=== PATIENT | male | born 1970 | race Two or more races ===

== ENCOUNTER 2018-03-01 22:14 | Emergency (ER) | payer OTHER ==
[2018-03-01] MEDS ORDERED: CONTRAST GIVEN MC (22:45)
[2018-03-01] MEDS: KETOROLAC 30 MG/ML INJ. IV (22:59)
[2018-03-01] MEDS: IOHEXOL 300 MG/ML 100ML VIAL. IV (23:00)
[2018-03-01] MEDS: IV NORMAL SALINE 1000ML BAG 1,000 ML IV (23:00)
[2018-03-01 23:02] LABS: ADD MAN DIFF? NO
[2018-03-01 23:04] LABS: BASO % 1 % (0-3); EOS % 1 % (0-3); HEMATOCRIT 40.6 % (39.0-53.0); LYMPH # 2.1 x10^3/uL (1.0-4.8); LYMPH % 48 % (24-48); MEAN CORPUSCULAR HEMOGLOBIN 31 pg (25-35); MEAN CORPUSCULAR HGB CONC 34 g/dL (31-37); MEAN CORPUSCULAR VOLUME 91 fL (79-100); MONO # 0.4 x10^3/uL (0.0-1.1); MONO % 9 % (0-9); NEUT # 1.8 x10^3uL (1.8-7.7); NEUT % 42 % (31-73); PLATELET COUNT 127 x10^3/uL (140-400); RED BLOOD COUNT 4.45 x10^6/uL (4.30-5.70); WHITE BLOOD COUNT 4.4 x10^3/uL (4.0-11.0)
[2018-03-01 23:11] LABS: ANION GAP 10 (6-14); BLOOD UREA NITROGEN 16 mg/dL (8-26); BUN/CREATININE RATIO 15 (6-20); CALCIUM 8.7 mg/dL (8.5-10.1); CARBON DIOXIDE 25 mmol/L (21-32); CHLORIDE 104 mmol/L (98-107); CREATININE 1.1 mg/dL (0.7-1.3); GFR 71.8; GLUCOSE 162 mg/dL (70-99); POTASSIUM 4.4 mmol/L (3.5-5.1); SODIUM 139 mmol/L (136-145)
[2018-03-01 23:17] LABS: ALBUMIN 3.6 g/dL (3.4-5.0); ALK PHOS 87 U/L (46-116); ALT (SGPT) 63 U/L (16-63); AST (SGOT) 33 U/L (15-37); LIPASE 192 U/L (73-393); TOTAL BILIRUBIN 0.2 mg/dL (0.2-1.0); TOTAL PROTEIN 7.1 g/dL (6.4-8.2)
[2018-03-01 23:44] LABS: BILIRUBIN,URINE NEGATIVE (NEG); CLARITY,URINE CLEAR; COLOR,URINE YELLOW; GLUCOSE,URINE 100 mg/dL (NEG); NITRITE,URINE NEGATIVE (NEG); PROTEIN,URINE NEGATIVE (NEG-TRACE); UROBILINOGEN,URINE 0.2 mg/dL (0.2 mg/dL)
[2018-03-01 23:51] LABS: BACTERIA,URINE 0 /HPF (0-FEW); RBC,URINE 0 /HPF (0-2); WBC,URINE OCC /HPF (0-4)
[2018-03-01 23:52] LABS: SQUAMOUS EPITHELIAL CELL,UR OCC /LPF
[2018-03-02] MEDS ORDERED: NOREPINEPHRIN PREMIX 250 ML IV (00:30)
== END 2018-03-02 00:26 | disposition home or self-care (01) ==
LOC: ER 03-02 00:26
DX: R10.30 Lower abdominal pain, unspecified (principal); Z88.8 Allergy status to other drugs, medicaments and biological substances; Z88.6 Allergy status to analgesic agent; Z87.442 Personal history of urinary calculi
CPT/HCPCS: 36415; 74177; 80053; 81001; 83690; 85025; 96374; 99285-25; J1885; J7030; Q9967

== ENCOUNTER 2021-09-28 17:36 | Observation (INO) | payer BC ==
[~2021-09-28] VITALS: Ht 170.2 cm; Wt 87.0 kg
[~2021-09-28 17:36] MED LIST: BUTA-153 PO; CIPR500T94 PO; CITA20TA9 PO; DIAZ5TAB4 PO; DICL112S2 TP; DIVA500T2 PO; FLUT9.9S NS; IBUP1TAB7 PO; LOPE2CAP PO; METH-38 PO; METR500T PO; ZOLP10TA PO
[2021-09-28] MEDS ORDERED: IV NORMAL SALINE 1000ML BAG 1,000 ML IV SCH (19:15)
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
[2021-09-28] MEDS ORDERED: METOCLOPRAMIDE HCL 10 MG/2 ML VIAL. IVP ONE (19:45)
[2021-09-28] MEDS ORDERED: fentaNYL PF VIAL 100 MCG/2 ML VIAL IVP ONE (19:45)
[2021-09-28] MEDS ORDERED: FAMOTIDINE 20 MG/2 ML VIAL IVP ONE (19:45)
[2021-09-28 20:00] LABS: BASO % 1 % (0-3); EOS % 1 % (0-3); HEMATOCRIT 41.6 % (39.0-53.0); HEMOGLOBIN 13.6 g/dL (13.0-17.5); LYMPH # 2.7 x10^3/uL (1.0-4.8); LYMPH % 57 % (24-48); MEAN CORPUSCULAR HEMOGLOBIN 29 pg (25-35); MEAN CORPUSCULAR HGB CONC 33 g/dL (31-37); MEAN CORPUSCULAR VOLUME 90 fL (79-100); MONO # 0.3 x10^3/uL (0.0-1.1); MONO % 7 % (0-9); NEUT # 1.7 x10^3/uL (1.8-7.7); NEUT % 36 % (31-73); PLATELET COUNT 184 x10^3/uL (140-400); RED BLOOD COUNT 4.64 x10^6/uL (4.30-5.70); WHITE BLOOD COUNT 4.7 x10^3/uL (4.0-11.0)
[2021-09-28 20:02] LABS: CALCIUM 9.1 mg/dL (8.5-10.1); CREATININE 0.7 mg/dL (0.7-1.3); GFR 119.4; POTASSIUM 4.3 mmol/L (3.5-5.1)
--- NOTE | 2021-09-28 20:06 | RAD ---
XR CHEST 1V 09/28/2021 7:30 PM INDICATION: Vomiting, chills COMPARISON: None available TECHNIQUE: Portable frontal view of the chest is provided. FINDINGS: The cardiomediastinal silhouette is within normal limits. Consolidative changes identified at the med ial lung bases. There are no significant pleural effusions. There is no pulmonary vascular congestion. No pneumothora x. No suspicious osseous abnormality. IMPRESSION: Mild consolidative changes at the medial lung bases may reflect bibasilar atelectasis versus developi ng pneumonia. Bronchial wall thickening compatible with nonspecific bronchitis. Electronically signed by: Serena Elizondo MD (09/28/2021 8:04 PM) [facility]
[2021-09-28 20:07] LABS: ALBUMIN 3.9 g/dL (3.4-5.0); MAGNESIUM 2.2 mg/dL (1.8-2.4); TOTAL BILIRUBIN 0.2 mg/dL (0.2-1.0); TOTAL PROTEIN 7.8 g/dL (6.4-8.2)
[2021-09-28 20:12] LABS: BILIRUBIN,URINE NEGATIVE (NEG); CLARITY,URINE CLEAR; COLOR,URINE YELLOW; NITRITE,URINE NEGATIVE (NEG); PROTEIN,URINE NEGATIVE (NEG-TRACE); UROBILINOGEN,URINE 0.2 mg/dL (0.2 mg/dL)
[2021-09-28 20:18] LABS: BARBITURATES NEG (NEG); BENZODIAZEPINES NEG (NEG); CANNABINOIDS NEG (NEG); COCAINE NEG (NEG); METHADONE NEG (NEG); OPIATES NEG (NEG); PHENCYCLIDINE NEG (NEG)
[2021-09-28 20:20] LABS: BACTERIA,URINE 0 /HPF (0-FEW); RBC,URINE 0 /HPF (0-2); WBC,URINE 0 /HPF (0-4)
[2021-09-28 20:21] LABS: AMPHETAMINE/METHAMPHETAMINE NEG (NEG)
[2021-09-28] MEDS ORDERED: IOHEXOL 300 MG/ML 100ML VIAL. IV ONE (21:00)
[2021-09-28] MEDS ORDERED: CONTRAST GIVEN. MC PRN (21:00)
--- NOTE | 2021-09-28 21:48 | RAD ---
CT abdomen and pelvis with contrast: Reason for examination: Diarrhea and vomiting with abdominal pain. Comparison is made to previous study dated 03/01/2018. Helical images were obtained through the abdomen and pelvis with intravenous administration of 75 cc Omnipaque 300. Reconstruction was performed in sagittal and coronal planes. Exposure: One or more of the following individualized dose reduction techniques were utilized for thi s examination: 1. Automated exposure control 2. Adjustment of the mA and/or kV according to patient size 3. Use of iterative reconstruction technique. The lung bases are clear. The heart size is normal with no pericardial effusion. No focal abnormality seen at the liver, gallbladder, spleen, adrenal glands or pancreas. The abdominal aorta and inferior vena cava show no acute abnormalities. The colon shows no diverticulosis, diverticulitis or colitis. No abnormality seen at the appendix. Th e small intestinal tract shows some mild dilatation and mild wall thickening in the proximal jejunum which could reflect enteritis. No obstruction is seen. No abnormality seen at the stomach or duodenum . The kidneys show a small 2 cm hypodense lesion pedunculated off the midpole of the left kidney and ap pears to have increased in size from 1.4 cm previously. Further evaluation with ultrasound is recomme nded to determine if this is cystic or solid. This can be performed on a nonemergent basis. No renal calculi, hydronephrosis or obstructive uropathy seen. No abnormality seen at the bladder, prostate gland or seminal vesicles. No free fluid or free air is seen in the abdomen or pelvis. No acute bony abnormalities are seen in the lumbar spine or pelvis. IMPRESSION: 2 cm hypodense lesion pedunculated off the midpole the left kidney which has increased in size from 1 .4 cm previously. Recommend further evaluation with ultrasound on a nonemergent basis. There is some mild dilatation and mild thickening of the small intestinal wall in the proximal jejunu m which may reflect some focal enteritis. No other acute abnormalities evident in the abdomen or pelvis. Electronically signed by: Maria De Jesus Cardozo MD (09/28/2021 9:46 PM) [facility]
[2021-09-28] MEDS ORDERED: ONDANSETRON PF 4 MG/2 ML VIAL. IVP PRN (22:00)
[2021-09-28 23:00] VITALS: BP 139/88
[2021-09-29] MEDS ORDERED: SITA1TAB7 PO (00:35)
[2021-09-29] MEDS ORDERED: OMEP40CA7 PO (00:35)
[2021-09-29] MEDS ORDERED: IBUP-1060 PO (00:35)
[2021-09-29] MEDS ORDERED: ONDA4TAB12 PO (00:35)
[2021-09-29] MEDS ORDERED: ALFU10TA4 PO (00:35)
[2021-09-29] MEDS ORDERED: FLUO20CA22 PO (00:35)
[2021-09-29 03:15] VITALS: BP 134/78
--- NOTE | 2021-09-29 06:51 | EKG ---
[facility] [address] [place] [address] Test Date: 2021-09-28 Test Time: 19:26:50 Pat Name: KAMI CARRIZALES Department: Room: Gender: M [employer] Project [employer]: : 1970 Requested By: FELIPE FOY Order Number: [id number] Reading MD: Measurements Intervals [place] Rate: 58 P: 33 ND: 194 QRS: 16 QRSD: 84 T: 29 QT: 356 QTc: 352 Interpretive Statements SINUS RHYTHM NORMAL ECG RI6.02 No previous ECG available for comparison
[2021-09-29] MEDS ORDERED: DEXTROSE 50% 25 GM / 50ML DISP.SYRIN. IV PRN (07:15)
[2021-09-29 07:38] VITALS: BP 124/74
[2021-09-29] MEDS: INSULIN LISPRO 300 UNITS/3 ML VIAL. SQ SCH ×3 (08:00→17:00)
[2021-09-29] MEDS: TAMSULOSIN 0.4 MG CAP.ER.24H. PO SCH (08:16)
[2021-09-29] MEDS: FLUoxetine HCL 20 MG CAPSULE PO SCH (08:16)
[2021-09-29] MEDS: PANTOPRAZOLE 40 MG TABLET.DR. PO SCH (08:16)
[2021-09-29] MEDS ORDERED: DIVALPROEX DELAYED RELEASE 500 MG TABLET.DR. PO SCH (09:00)
[2021-09-29 11:02] VITALS: BP 113/74
--- NOTE | 2021-09-29 13:00 | SSS ---
DATE OF SERVICE: 09/29/2021 ADMIT DATE: 09/28/2021 CHIEF COMPLAINT: Abdominal pain. HISTORY OF PRESENT ILLNESS: The patient is a pleasant, relatively healthy 50-year-old male who presented to the ER with 1 week of abdominal pain. He states it got worse with eating. He has associated bloating, rated at 7/10. He took some [id number] meds, but that did not seem to help. While in the ER, we noticed that his troponin was a little high. I discussed the case with the ER physician. We are admitting the patient with consultation to Cardiology. He also has enteritis and we are going to give him IV fluids, Protonix and Zofran. PAST MEDICAL HISTORY: Kidney stones, seizure disorder, depression and anxiety, GERD, chronic nausea, and diabetes. ALLERGIES: ASPIRIN AND PHENYTOIN. FAMILY HISTORY: Diabetes. SOCIAL HISTORY: He does not drink, smoke or take drugs. MEDICATIONS: Reviewed. He is on 9 medications. Please refer to the MRAD. REVIEW OF SYSTEMS: GENERAL: No history of weight change, weakness or fevers. SKIN: No bruising, hair changes or rashes. EYES: No blurred, double or loss of vision. NOSE AND THROAT: No history of nosebleeds, hoarseness or sore throat. HEART: No history of palpitations, chest pain or shortness of breath on exertion. LUNGS: Denies cough, hemoptysis, wheezing or shortness of breath. GASTROINTESTINAL: He complains of abdominal pain. GENITOURINARY: No history of frequency, urgency, hesitancy or nocturia. NEUROLOGIC: Denies history of numbness, tingling, tremor or weakness. PSYCHIATRIC: No history of panic, anxiety or depression. ENDOCRINE: No history of heat or cold intolerance, polyuria or polydipsia. EXTREMITIES: Denies muscle weakness, joint pain, pain on walking or stiffness. PHYSICAL EXAMINATION: VITALS: Within normal limits and are stable. GENERAL: No apparent distress. Alert and oriented. HEENT: Normal cephalic atraumatic, external auditory canals are patent. Eyes: Extraocular muscles are intact, pupils are equally round and reactive to light and accommodation. MUSCULOSKELETAL: Well developed, well nourished, good range of motion. ENDOCRINE: No thyromegaly was palpated. LYMPHATICS: No cervical chain or axillary nodes were noted. HEMATOPOIETIC: No bruising. NECK: Supple, no JVD, no thyromegaly was noted. LUNGS: Clear to auscultation in all lung torrez without rhonchi or wheezing. HEART: RRR, S1, S2 present. Peripheral pulses intact, no obvious murmurs were noted. ABDOMEN: He has decreased bowel sounds. Slightly tender. EXTREMITIES: Without any cyanosis, clubbing, or edema. Pedal pulses intact, Homans sign is negative. NEUROLOGIC: Normal speech, normal tone. A and O x 3, moves all extremities, no obvious focal deficits. PSYCHIATRIC: Normal affect, normal mood. Stable. SKIN: No ulcerations or rashes, good skin turgor, no jaundice. VASCULAR: Good capillary refill, neurovascular bundle appears to be intact. LABORATORY DATA: Electrolytes are normal. Troponin is high at 136, then 134, then 127. Drug screen negative. Urinalysis negative. COVID testing negative. Abdominal CT shows a 2 cm hypodense lesion in the left kidney. There is also some thickening of the small intestine, which may represent focal enteritis. ASSESSMENT AND PLAN: Elevated troponin, abdominal pain, enteritis and renal lesion. The patient will be admitted. We will consult GI. Consult Cardiology. Home meds. Deep venous thrombosis prophylaxis. Full code. P.r.n. Zofran, p.r.n. pain meds, IV fluids. We will add empiric Rocephin. Trend labs. RICH/LAVELL DR: Thony TID: [id number]
[2021-09-29] MEDS: cefTRIAXone IV Push 1 GM VIAL. IVP SCH (13:07)
--- NOTE | 2021-09-29 14:25 | PDOC2 ---
CONSULT Date of Consult Date of Consult DATE: 09/29/21 TIME: 14:25 Reason for Consult Reason for Consult: Elevated troponin level Referring Physician Referring Physician: Dr. Cardoza Identification/Chief Complaint Chief Complaint Abdominal pain Source Source: Chart review, Patient History of Present Illness Reason for Visit: 50-year-old male without any previous cardiac history presented with approximately 1 week history of abdominal pain, vomiting and diarrhea. He apparently was evaluated by GI team 3 months ago with endoscopy but cannot remember the results. He denied any chest pain as such. He also denied any orthopnea/PND, palpitations or syncope. Past Medical History Past Medical History Seizure disorder Nephrolithiasis Diabetes mellitus type 2 Past Surgical History Past Surgical History: No pertinent history Social History Social History Patient denied any smoking, alcohol or drug use Current Problem List Problem List Problems Medical Problems: (1) Elevated troponin Status: Acute (2) Enteritis Status: Acute Current Medications Current Medications Current Medications Sodium Chloride 1,000 ml @ 1,000 mls/hr Q1H IV Last administered on 09/28/21at 19:46; Start 09/28/21 at 19:15; Stop 09/28/21 at 20:14; Status DC Fentanyl Citrate (Fentanyl 2ml Vial) 25 mcg 1X ONCE IVP Last administered on 09/28/21at 19:45; Start 09/28/21 at 19:45; Stop 09/28/21 at 19:46; Status DC Famotidine (Pepcid Vial) 20 mg 1X ONCE IVP Last administered on 09/28/21at 19:46; Start 09/28/21 at 19:45; Stop 09/28/21 at 19:46; Status DC Metoclopramide HCl (Reglan Vial) 10 mg 1X ONCE IVP Last administered on 09/28/21at 19:46; Start 09/28/21 at 19:45; Stop 09/28/21 at 19:46; Status DC Iohexol (Omnipaque 300 Mg/ml) 75 ml 1X ONCE IV Last administered on 09/28/21at 20:53; Start 09/28/21 at 21:00; Stop 09/28/21 at 21:01; Status DC Info (CONTRAST GIVEN -- Rx MONITORING) 1 each PRN DAILY PRN MC SEE COMMENTS; Start 09/28/21 at 21:00; Stop 09/30/21 at 20:59 Ondansetron HCl (Zofran) 4 mg PRN Q8HRS PRN IVP NAUSEA/VOMITING; Start 09/28/21 at 22:00; Stop 09/29/21 at 21:59 Divalproex Sodium (Depakote) 500 mg BID PO Last administered on 09/29/21at 08: 16; Start 09/29/21 at 09:00; Stop 09/29/21 at 11:24; Status DC Fluoxetine HCl (PROzac) 20 mg DAILY PO Last administered on 09/29/21at 08:16; Start 09/29/21 at 09:00 Tamsulosin HCl (Flomax) 0.4 mg DAILY PO Last administered on 09/29/21at 08:16; Start 09/29/21 at 09:00 Pantoprazole Sodium (Protonix) 40 mg DAILYAC PO Last administered on 09/29/21at 08:16; Start 09/29/21 at 07:30 Insulin Human Lispro (HumaLOG) 0-9 UNITS TIDWMEALS SQ ; Start 09/29/21 at 08:00 Dextrose (Dextrose 50%-Water Syringe) 12.5 gm PRN Q15MIN PRN IV SEE COMMENTS; Start 09/29/21 at 07:15 Divalproex Sodium (Depakote) 1,000 mg BID PO ; Start 09/29/21 at 21:00 Ceftriaxone Sodium (Rocephin) 1 gm Q24H IVP Last administered on 09/29/21at 13:07; Start 09/29/21 at 13:00 Active Scripts Active Reported Alfuzosin Hcl 10 Mg Tab.er.24h 1 Tab PO DAILY Fluoxetine Hcl 20 Mg Capsule 1 Cap PO DAILY Janumet 50-500 Mg Tablet (Sitagliptin Phos/Metformin Hcl) 1 Each Tablet 1 Each PO DAILY Omeprazole 40 Mg Capsule. 40 Mg PO DAILY Ibuprofen 800 Mg Tablet 800 Mg PO PRN Q6HRS PRN Ondansetron Odt (Ondansetron) 4 Mg Tab.rapdis 8 Mg PO PRN TID PRN Depakote (Divalproex Sodium) 500 Mg Tablet.dr 1 Tab PO BID Flagyl (Metronidazole) 500 Mg Tablet 1 Tab PO BID Ambien (Zolpidem Tartrate) 10 Mg Tablet 1 Tab PO QHS Allergies Allergies: Coded Allergies: aspirin (Unverified Allergy, Intermediate, 07/09/16) phenytoin (Verified Allergy, Intermediate, hives, 07/09/16) ROS PSYCHOLOGICAL ROS: No: Hallucinations Eyes: No Loss of vision HEENT: No: Epistaxis Respiratory: No: Hemoptysis, Shortness of breath Cardiovascular: No Chest Pain Gastrointestinal: Yes Vomiting, Yes Abdominal Pain, Yes Diarrhea Neurological: No Seizures Skin: No Rash Physical Exam General: Alert, No acute distress HEENT: Atraumatic Lungs: Clear to auscultation Heart: Regular rate Abdomen: Soft Extremities: No edema Neuro: Normal speech Psych/Mental Status: Mood NL Vitals VITALS Vital Signs Date Time Temp Pulse Resp B/P (MAP) Pulse Ox O2 Delivery O2 Flow Rate FiO2 09/29/21 11:02 98.4 65 17 113/74 (87) 98 Room Air 98.4 Labs Labs Laboratory Tests Test 09/28/21 19:40 09/28/21 19:59 09/28/21 20:01 09/28/21 22:28 White Blood Count 4.7 x10^3/uL (4.0-11.0) Red Blood Count 4.64 x10^6/uL (4.30-5.70) Hemoglobin 13.6 g/dL (13.0-17.5) Hematocrit 41.6 % (39.0-53.0) Mean Corpuscular Volume 90 fL (79-100) Mean Corpuscular Hemoglobin 29 pg (25-35) Mean Corpuscular Hemoglobin Concent 33 g/dL (31-37) Red Cell Distribution Width 14.0 % (11.5-14.5) Platelet Count 184 x10^3/uL (140-400) Neutrophils (%) (Auto) 36 % (31-73) Lymphocytes (%) (Auto) 57 % (24-48) Monocytes (%) (Auto) 7 % (0-9) Eosinophils (%) (Auto) 1 % (0-3) Basophils (%) (Auto) 1 % (0-3) Neutrophils # (Auto) 1.7 x10^3/uL (1.8-7.7) Lymphocytes # (Auto) 2.7 x10^3/uL (1.0-4.8) Monocytes # (Auto) 0.3 x10^3/uL (0.0-1.1) Eosinophils # (Auto) 0.0 x10^3/uL (0.0-0.7) Basophils # (Auto) 0.0 x10^3/uL (0.0-0.2) Sodium Level 136 mmol/L (136-145) Potassium Level 4.3 mmol/L (3.5-5.1) Chloride Level 101 mmol/L (98-107) Carbon Dioxide Level 26 mmol/L (21-32) Anion Gap 9 (6-14) Blood Urea Nitrogen 12 mg/dL (8-26) Creatinine 0.7 mg/dL (0.7-1.3) Estimated GFR (Cockcroft-Gault) 119.4 BUN/Creatinine Ratio 17 (6-20) Glucose Level 191 mg/dL (70-99) Calcium Level 9.1 mg/dL (8.5-10.1) Magnesium Level 2.2 mg/dL (1.8-2.4) Total Bilirubin 0.2 mg/dL (0.2-1.0) Aspartate Amino Transf (AST/SGOT) 19 U/L (15-37) Alanine Aminotransferase (ALT/SGPT) 50 U/L (16-63) Alkaline Phosphatase 82 U/L (46-116) Troponin I High Sensitivity 136 ng/L (4-75) 134 ng/L (4-75) Total Protein 7.8 g/dL (6.4-8.2) Albumin 3.9 g/dL (3.4-5.0) Albumin/Globulin Ratio 1.0 (1.0-1.7) Lipase 190 U/L (73-393) Urine Collection Type Void Urine Color Yellow Urine Clarity Clear Urine pH 7.0 (<5.0-8.0) Urine Specific Grant 1.020 (1.000-1.030) Urine Protein Negative mg/dL (NEG-TRACE) Urine Glucose (UA) >=1000 mg/dL (NEG) Urine Ketones (Stick) Negative mg/dL (NEG) Urine Blood Negative (NEG) Urine Nitrite Negative (NEG) Urine Bilirubin Negative (NEG) Urine Urobilinogen Dipstick 0.2 mg/dL (0.2 mg/dL) Urine Leukocyte Esterase Negative (NEG) Urine RBC 0 /HPF (0-2) Urine WBC 0 /HPF (0-4) Urine Squamous Epithelial Cells Few /LPF Urine Bacteria 0 /HPF (0-FEW) Urine Opiates Screen Neg (NEG) Urine Methadone Screen Neg (NEG) Urine Barbiturates Neg (NEG) Urine Phencyclidine Screen Neg (NEG) Urine Amphetamine/Methamphetamine Neg (NEG) Urine Benzodiazepines Screen Neg (NEG) Urine Cocaine Screen Neg (NEG) Urine Cannabinoids Screen Neg (NEG) Urine Ethyl Alcohol Neg (NEG) SARS-CoV-2 RNA (NIGEL) Negative (Negative) SARS-CoV-2 Antigen (Rapid) Negative (NEGATIVE) Test 09/29/21 01:40 09/29/21 11:49 Troponin I High Sensitivity 127 ng/L (4-75) Glucose (Fingerstick) 146 mg/dL (70-99) Laboratory Tests Test 09/28/21 19:40 09/28/21 19:59 09/28/21 20:01 09/28/21 22:28 White Blood Count 4.7 x10^3/uL (4.0-11.0) Red Blood Count 4.64 x10^6/uL (4.30-5.70) Hemoglobin 13.6 g/dL (13.0-17.5) Hematocrit 41.6 % (39.0-53.0) Mean Corpuscular Volume 90 fL (79-100) Mean Corpuscular Hemoglobin 29 pg (25-35) Mean Corpuscular Hemoglobin Concent 33 g/dL (31-37) Red Cell Distribution Width 14.0 % (11.5-14.5) Platelet Count 184 x10^3/uL (140-400) Neutrophils (%) (Auto) 36 % (31-73) Lymphocytes (%) (Auto) 57 % (24-48) Monocytes (%) (Auto) 7 % (0-9) Eosinophils (%) (Auto) 1 % (0-3) Basophils (%) (Auto) 1 % (0-3) Neutrophils # (Auto) 1.7 x10^3/uL (1.8-7.7) Lymphocytes # (Auto) 2.7 x10^3/uL (1.0-4.8) Monocytes # (Auto) 0.3 x10^3/uL (0.0-1.1) Eosinophils # (Auto) 0.0 x10^3/uL (0.0-0.7) Basophils # (Auto) 0.0 x10^3/uL (0.0-0.2) Sodium Level 136 mmol/L (136-145) Potassium Level 4.3 mmol/L (3.5-5.1) Chloride Level 101 mmol/L (98-107) Carbon Dioxide Level 26 mmol/L (21-32) Anion Gap 9 (6-14) Blood Urea Nitrogen 12 mg/dL (8-26) Creatinine 0.7 mg/dL (0.7-1.3) Estimated GFR (Cockcroft-Gault) 119.4 BUN/Creatinine Ratio 17 (6-20) Glucose Level 191 mg/dL (70-99) Calcium Level 9.1 mg/dL (8.5-10.1) Magnesium Level 2.2 mg/dL (1.8-2.4) Total Bilirubin 0.2 mg/dL (0.2-1.0) Aspartate Amino Transf (AST/SGOT) 19 U/L (15-37) Alanine Aminotransferase (ALT/SGPT) 50 U/L (16-63) Alkaline Phosphatase 82 U/L (46-116) Troponin I High Sensitivity 136 ng/L (4-75) 134 ng/L (4-75) Total Protein 7.8 g/dL (6.4-8.2) Albumin 3.9 g/dL (3.4-5.0) Albumin/Globulin Ratio 1.0 (1.0-1.7) Lipase 190 U/L (73-393) Urine Collection Type Void Urine Color Yellow Urine Clarity Clear Urine pH 7.0 (<5.0-8.0) Urine Specific Grant 1.020 (1.000-1.030) Urine Protein Negative mg/dL (NEG-TRACE) Urine Glucose (UA) >=1000 mg/dL (NEG) Urine Ketones (Stick) Negative mg/dL (NEG) Urine Blood Negative (NEG) Urine Nitrite Negative (NEG) Urine Bilirubin Negative (NEG) Urine Urobilinogen Dipstick 0.2 mg/dL (0.2 mg/dL) Urine Leukocyte Esterase Negative (NEG) Urine RBC 0 /HPF (0-2) Urine WBC 0 /HPF (0-4) Urine Squamous Epithelial Cells Few /LPF Urine Bacteria 0 /HPF (0-FEW) Urine Opiates Screen Neg (NEG) Urine Methadone Screen Neg (NEG) Urine Barbiturates Neg (NEG) Urine Phencyclidine Screen Neg (NEG) Urine Amphetamine/Methamphetamine Neg (NEG) Urine Benzodiazepines Screen Neg (NEG) Urine Cocaine Screen Neg (NEG) Urine Cannabinoids Screen Neg (NEG) Urine Ethyl Alcohol Neg (NEG) SARS-CoV-2 RNA (NIGEL) Negative (Negative) SARS-CoV-2 Antigen (Rapid) Negative (NEGATIVE) Test 09/29/21 01:40 09/29/21 11:49 Troponin I High Sensitivity 127 ng/L (4-75) Glucose (Fingerstick) 146 mg/dL (70-99) Assessment/Plan Assessment/Plan 1. Slightly elevated troponin level, most probably type II/demand ischemia. Patient denied any chest pain and EKG without acute changes. Ischemic evaluation could be considered as an outpatient. 2. Acute gastroenteritis: Supportive care per IM 3. Diabetes mellitus type 2: Continue current medical regimen Thank you for your consultation ALENA YAP MD Sep 29, 2021 14:25
[2021-09-29 14:36] VITALS: BP 111/56
[2021-09-29 19:00] VITALS: BP 136/78
[2021-09-29] MEDS: DIVALPROEX DELAYED RELEASE 500 MG TABLET.DR. PO SCH (21:19)
[2021-09-29 23:00] VITALS: BP 137/86
[2021-09-30 02:51] VITALS: BP 122/74
[2021-09-30 06:32] VITALS: BP 119/71
[2021-09-30] MEDS: INSULIN LISPRO 300 UNITS/3 ML VIAL. SQ SCH ×2 (08:00→11:43)
[2021-09-30] MEDS: PANTOPRAZOLE 40 MG TABLET.DR. PO SCH (08:45)
[2021-09-30] MEDS: DIVALPROEX DELAYED RELEASE 500 MG TABLET.DR. PO SCH (08:46)
[2021-09-30] MEDS: FLUoxetine HCL 20 MG CAPSULE PO SCH (08:46)
[2021-09-30] MEDS: TAMSULOSIN 0.4 MG CAP.ER.24H. PO SCH (08:46)
[2021-09-30] MEDS ORDERED: LACTOBACILLUS RHAMNOSUS GG 1 CAPSULE. PO SCH (09:00)
[2021-09-30] MEDS ORDERED: ACETAMINOPHEN 325 MG TABLET. PO PRN (09:00)
--- NOTE | 2021-09-30 10:16 | PDOC2 ---
GI CONSULT Date of Service: DATE: 09/30/21 TIME: 10:16 Reason For Consult: enteritis HPI: HPI: 50 y/o male admitted 09/28/21. History from him limited - he speaks limited Croatian, there is no manager product marketing (staff or phone) available, and he is unable to reach his via phone currently. Chart indicates he had a variety of GI complaints including lower abd pain, diarrhea, and bloating. D/w nurse - he is without GI complaints currently. He indicates to me that he had RLQ discomfort, bloating/discomfort after eating, and diarrhea for several days. He says he is now tolerating diet, has no pain, and hasn't had diarrhea. He takes omeprazole at home after breakfast. Office notes reviewed - h/o abdominal pain, bloating, constipation, diarrhea, n/v, GERD, and dysphagia. EGD and colonoscopy on 03/19/21: reflux (biopsy negative for Bland's), reactive gastropathy (negative for H. pylori), duodenitis (negative for Celiac), 13mm TVA in rectum (negative for dysplasia/malignancy - resected, clipped, tattooed), internal hemorrhoids. Esophagus empirically dilated to 54Fr. Started on omeprazole 40mg QD on 03/28/21 and advised to undergo colonoscopy in 03/2022. Colonoscopy 03/01/14: 6mm rectal adenoma, internal hemorrhoids. Med list shows ibuprofen. PMH: PMH: DM, seizure disorder, BPH, nephrolithiasis right wrist surgery FH: Family History: Cancer (colon - secondary relatives), DM, Hypertension Social History: Smoke: No ALCOHOL: other (in past) ROS: GEN: Denies fevers, chills, sweats HEENT: Denies blurred vision, sore throat CV: Denies chest pain RESP: Denies shortness of air, cough GI: Per HPI : Denies hematuria, dysuria ENDO: Denies weight changes NEURO: Denies confusion, dizziness MSK: Denies weakness, joint pain/swelling SKIN: Denies jaundice, pruritus Vitals: Vitals: Vital Signs Date Time Temp Pulse Resp B/P (MAP) Pulse Ox O2 Delivery O2 Flow Rate FiO2 09/30/21 06:32 98.5 50 16 119/71 (87) 97 Room Air 98.5 Labs: Labs: Laboratory Tests Test 09/29/21 11:49 09/29/21 16:57 09/29/21 20:52 09/30/21 07:31 Glucose (Fingerstick) 146 mg/dL (70-99) 119 mg/dL (70-99) 153 mg/dL (70-99) 135 mg/dL (70-99) Allergies: Coded Allergies: aspirin (Unverified Allergy, Intermediate, 07/09/16) phenytoin (Verified Allergy, Intermediate, hives, 07/09/16) Medications: Current Medications Medications (Trade) Dose Ordered Sig/Balaji Route PRN Reason Start Time Stop Time Status Last Admin Dose Admin Divalproex Sodium (Depakote) 1,000 mg BID PO 09/29/21 21:00 09/30/21 08:46 Ceftriaxone Sodium (Rocephin) 1 gm Q24H IVP 09/29/21 13:00 09/29/21 13:07 Lactobacillus Rhamnosus (Culturelle) 1 cap BID PO 09/30/21 09:00 09/30/21 08:59 Acetaminophen (Tylenol) 650 mg PRN Q6HRS PRN PO MILD PAIN / TEMP > 100.3'F 09/30/21 09:00 09/30/21 08:52 Imaging: Imaging: CT A/P 09/28 The lung bases are clear. The heart size is normal with no pericardial effusion. No focal abnormality seen at the liver, gallbladder, spleen, adrenal glands or pancreas. The abdominal aorta and inferior vena cava show no acute abnormalities. The colon shows no diverticulosis, diverticulitis or colitis. No abnormality seen at the appendix. The small intestinal tract shows some mild dilatation and mild wall thickening in the proximal jejunum which could reflect enteritis. No obstruction is seen. No abnormality seen at the stomach or duodenum. The kidneys show a small 2 cm hypodense lesion pedunculated off the midpole of the left kidney and appears to have increased in size from 1.4 cm previously. Further evaluation with ultrasound is recommended to determine if this is cystic or solid. This can be performed on a nonemergent basis. No renal calculi, hydronephrosis or obstructive uropathy seen. No abnormality seen at the bladder, prostate gland or seminal vesicles. No free fluid or free air is seen in the abdomen or pelvis. No acute bony abnormalities are seen in the lumbar spine or pelvis. IMPRESSION: 2 cm hypodense lesion pedunculated off the midpole the left kidney which has in creased in size from 1.4 cm previously. Recommend further evaluation with ultrasound on a nonemergent basis. There is some mild dilatation and mild thickening of the small intestinal wall in the proximal jejunum which may reflect some focal enteritis. No other acute abnormalities evident in the abdomen or pelvis. CXR 09/28 IMPRESSION: Mild consolidative changes at the medial lung bases may reflect bibasilar atelectasis versus developing pneumonia. Bronchial wall thickening compatible with nonspecific bronchitis. PE: GEN: NAD HEENT: Atraumatic, PERRL LUNGS: CTAB HEART: RRR ABD: NABS, S/ND/NT EXTREMITY: No edema SKIN: No rashes, no jaundice NEURO/PSYCH: A & O 3 A/P: A/P: Abd pain, diarrhea, bloating - seems this might be chronic/recurrent issues Abnormal CT - left renal lesion, possible enteritis GERD - taking PPI after breakfast at home H/o TVA - due for screening colonoscopy 03/2022 Elevated troponin - reviewed cardiology note: most probably type II/demand ischemia DM COVID negative -- Improved. Consider DC per primary. Counseled re: proper PPI dosing - 30-45 min before breakfast. Follow-up w/ GI PRN (and for colonoscopy in March). Could consider SBFT. THEA ZELAYA Sep 30, 2021 10:16
[2021-09-30 11:05] VITALS: BP 126/74
--- NOTE | 2021-09-30 11:29 | PDOC ---
SABRA,RODOLFO POSADA 09/30/21 1129: CARDIO Progress Notes Date and Time Date of Service 09/30/21 Time of Evaluation 1120 Subjective Subjective: No Chest Pain, No shortness of breath, No Palpitations Vitals Vitals Vital Signs Date Time Temp Pulse Resp B/P (MAP) Pulse Ox O2 Delivery O2 Flow Rate FiO2 09/30/21 11:05 98.4 56 13 126/74 (91) Room Air 98.4 09/30/21 06:32 97 Weight Weight [ ] Input and Output Intake and Output Intake and Output 09/30/21 07:00 Intake Total 1650 ml Balance 1650 ml Intake Oral 1650 ml # Voids 1 Laboratory Labs Laboratory Tests Test 09/29/21 11:49 09/29/21 16:57 09/29/21 20:52 09/30/21 07:31 Glucose (Fingerstick) 146 mg/dL (70-99) 119 mg/dL (70-99) 153 mg/dL (70-99) 135 mg/dL (70-99) Physical Exam HEENT: Neck Supple W Full Motion Chest: Symmetric LUNGS: Clear to Auscultation Heart: RRR Abdomen: Soft N/T Extremities: No Edema Neurology: alert, oriented, follow commands Assessment Assessment 1. Slightly elevated troponin level, most probably type II/demand ischemia. Patient denied any chest pain and EKG without acute changes. Ischemic evaluation could be considered as an outpatient. 2. Acute gastroenteritis: Supportive care per IM 3. Diabetes mellitus type 2: Continue current medical regimen Justicifation of Admission Dx: Justifications for Admission: Justification of Admission Dx: Yes Comments: gastroenteritis elevated troponin ALENA YAP MD 09/30/21 2016: CARDIO Progress Notes Assessment Assessment Patient seen and examined. Agree with PLACER MINER's assessment and plan. Slight trop elevation demand ischemia Plan ischemic evaluation as outpatient RODOLFO MONTAÑO APRN Sep 30, 2021 11:29 ALENA YAP MD Sep 30, 2021 20:16
--- NOTE | 2021-09-30 11:38 | DS ---
DATE OF DISCHARGE: 09/30/2021 ADMITTING DIAGNOSES: Enteritis and elevated troponin. DISCHARGE DIAGNOSES: Resolving enteritis, resolving elevated troponin. CONSULTS: GI and Cardiology. PROCEDURES: None. HOSPITAL COURSE: The patient is a pleasant middle-aged male who presented with some abdominal pain, was noted to have enteritis on his CAT scan. He also had a slight bump in his troponin. We admitted him, consulted GI and Cardiology. Today, I saw him and examined. He is at his baseline and wants to go home. We plan to advance his diet and if he tolerates that, we will let him go if okay with consults. DISPOSITION: Home. ACTIVITY: As tolerated. DIET: Low sodium. DISCHARGE MEDICATIONS: Please see the MRAD. Alfuzosin 10 mg daily, Depakote 1000 b.i.d., fluoxetine 20 a day, ibuprofen, metronidazole 500 b.i.d., Prilosec 40 a day, p.r.n. Zofran, Janumet 50/500 one tab daily, and Ambien 10 at bedtime. TOTAL TIME: [address]: Thony TID: [id number]
--- NOTE | 2021-09-30 11:48 | PDOC ---
[employer] PROGRESS NOTE Date of Service DOS: DATE: 09/30/21 TIME: 11:47 Chief Complaint Chief Complaint Enteritis Elevated troponin minimally Kidney stones, seizure disorder, depression and anxiety, GERD, chronic nausea, and diabetes. History of Present Illness History of Present Illness 09/30/2021 Patient seen exam He is at his baseline We will discharge Vitals/I&O Vitals/I&O: Vital Signs Date Time Temp Pulse Resp B/P (MAP) Pulse Ox O2 Delivery O2 Flow Rate FiO2 09/30/21 11:05 98.4 56 13 126/74 (91) Room Air 98.4 09/30/21 06:32 97 I & O 09/29/21 09/29/21 09/30/21 15:00 23:00 07:00 Intake Total 1000 ml 500 ml 150 ml Balance 1000 ml 500 ml 150 ml Physical Exam General: Alert, No acute distress Heart: Regular rate Abdomen: Soft Extremities: No edema Labs Labs: Laboratory Tests Test 09/29/21 11:49 09/29/21 16:57 09/29/21 20:52 09/30/21 07:31 Glucose (Fingerstick) 146 mg/dL (70-99) 119 mg/dL (70-99) 153 mg/dL (70-99) 135 mg/dL (70-99) Assessment and Plan Assessmemt and Plan Problems Medical Problems: (1) Elevated troponin Status: Acute (2) Enteritis Status: Acute Enteritis Elevated troponin minimally Kidney stones, seizure disorder, depression and anxiety, GERD, chronic nausea, and diabetes. Plan discharge see dictation Comment Review of Relevant I have reviewed the following items lennie (where applicable) has been applied. Medications: Current Medications Medications (Trade) Dose Ordered Sig/Balaji Route PRN Reason Start Time Stop Time Status Last Admin Dose Admin Divalproex Sodium (Depakote) 1,000 mg BID PO 09/29/21 21:00 09/30/21 08:46 Ceftriaxone Sodium (Rocephin) 1 gm Q24H IVP 09/29/21 13:00 09/29/21 13:07 Lactobacillus Rhamnosus (Culturelle) 1 cap BID PO 09/30/21 09:00 09/30/21 08:59 Acetaminophen (Tylenol) 650 mg PRN Q6HRS PRN PO MILD PAIN / TEMP > 100.3'F 09/30/21 09:00 09/30/21 08:52 Justifications for Admission Other Justification DARYL CANCINO III DO Sep 30, 2021 11:48
[2021-09-30] MEDS: cefTRIAXone IV Push 1 GM VIAL. IVP SCH (11:55)
--- NOTE | 2021-09-30 12:04 | NUR ---
SS following for discharge planning. SS reviewed pt chart and discussed with pt RN. Pt is from home with spouse and is currently on room air. COVID19 negative. Discharge order on the chart for home with self care.
--- NOTE | 2021-09-30 13:24 | NUR ---
Discharge Note: [facility] Discharge instructions and discharge home medications reviewed with Patient and a copy given. All questions have been answered and understanding verbalized. The following instructions and handouts were given: gastroenteritis. Patient discharged to home with self care via wheelchair.
== END 2021-09-30 13:20 | disposition home or self-care (01) ==
LOC: ER 17:36 → 6 SOUTH 21:58
PROVIDERS: ADMIT Internal Medicine; ATTEND Internal Medicine
DX: K52.9 Noninfective gastroenteritis and colitis, unspecified (principal); Z20.822 Contact with and (suspected) exposure to COVID-19; N28.9 Disorder of kidney and ureter, unspecified; R77.8 Other specified abnormalities of plasma proteins; R10.9 Unspecified abdominal pain; F41.9 Anxiety disorder, unspecified; F32.9 Major depressive disorder, single episode, unspecified; G40.909 Epilepsy, unspecified, not intractable, without status epilepticus; F32.A Depression, unspecified; E11.43 Type 2 diabetes mellitus with diabetic autonomic (poly)neuropathy; I24.8 Other forms of acute ischemic heart disease; J40 Bronchitis, not specified as acute or chronic; K21.9 Gastro-esophageal reflux disease without esophagitis; K31.84 Gastroparesis; N20.0 Calculus of kidney; N40.0 Benign prostatic hyperplasia without lower urinary tract symptoms; Z87.442 Personal history of urinary calculi; Z79.899 Other long term (current) drug therapy; Z98.890 Other specified postprocedural states
CPT/HCPCS: 36415; 71045; 74177; 80053; 80307; 81001; 82962; 83690; 83735; 84484; 85025; 87426; 93005; 96361; 96374; 96375; 96376; 99285; G0378; J0696; J1815; J2765; J3010; J3490; J7030; Q9967; U0003; U0005; G0379

== ENCOUNTER → 2021-12-02 | Outpatient (CLI) | payer BC ==
[~2021-12-02] MED LIST changes: +ALFU10TA4 PO; +FLUO20CA22 PO; +IBUP-1060 PO; +OMEP40CA7 PO; +ONDA4TAB12 PO; +REGADENOSON 0.4 MG/5 ML DISP.SYRIN. IV ONE; +SITA1TAB7 PO
--- NOTE | 2021-12-03 09:05 | CARD ---
MR#: [id number] Date of Study: 12/02/2021 Ordering Physician: ALENA YAP, Referring Physician: Mio KELLER: Emmanuel Shi [facility] APPROVED REPORT EXAM: Two-dimensional and M-mode echocardiogram with Doppler and color Doppler. Other Information Quality : AverageHR: 61bpm Rhythm : NSR INDICATION Chest Pain Elevated troponin RISK FACTORS Family History 2D DIMENSIONS Left Atrium(2D)3.3 (1.6-4.0cm)IVSd1.2 (0.7-1.1cm) Aortic Root(2D)3.5 (2.0-3.7cm)LVDd3.6 (3.9-5.9cm) LVOT Diameter2.2 (1.8-2.4cm)PWd1.2 (0.7-1.1cm) LVDs2.4 (2.5-4.0cm)FS (%) 35.1 % SV36.2 mlLVEF(%)65.3 (>50%) Aortic Valve AoV Peak Steve.134.4cm/sAoV VTI29.5cm AO Peak GR.7.2mmHgLVOT Peak Steve.129.9cm/s AO Mean GR.5mmHgAVA (VMAX)3.67cm2 Mitral Valve MV E Oznrghxg73.9cm/sMV E Peak Gr.3mmHg MV DECEL [id number] A Jxwnfsoq23.7cm/s MV E Mean Gr.1mmHgE/A Ratio0.7 Pulmonary Valve PV Peak Yvqvvqiw65.9cm/s Tricuspid Valve TR P. Jsqxlwse272vz/sTR Peak Gr.19mmHg Pulmonary Vein S1 Evebynmw49.5cm/sD2 Vomyqwbn76.8cm/s LEFT VENTRICLE The left ventricle is normal size. There is borderline to mild concentric left ventricular hypertroph y. The left ventricular systolic function is normal and the ejection fraction is within normal range. EF 55% There is normal LV segmental wall motion. Transmitral Doppler flow pattern is Grade I-abnorma l relaxation pattern. No left ventricle thrombus noted on this study. There is no ventricular septal defect visualized. There is no left ventricular aneurysm. There is no mass noted in the left ventricl e. RIGHT VENTRICLE The right ventricle is normal size. There is normal right ventricular wall thickness. The right ventr icular systolic function is normal. ATRIA The left atrium size is normal. The right atrium size is normal. The interatrial septum is intact wit h no evidence for an atrial septal defect or patent foramen ovale as noted on 2-D or Doppler imaging. AORTIC VALVE The aortic valve is normal in structure and function. The aortic valve is trileaflet. Doppler and Col or Flow revealed no significant aortic regurgitation. There is no significant aortic valvular stenosi s. There is no aortic valvular vegetation. MITRAL VALVE The mitral valve is normal in structure and function. There is no evidence of mitral valve prolapse. There is no mitral valve stenosis. Doppler and Color-flow revealed trace mitral regurgitation. TRICUSPID VALVE The tricuspid valve is normal in structure and function. Doppler and Color Flow revealed trace tricus pid regurgitation. The PA pressure was estimated at 25 mmHg. There is no tricuspid valve prolapse or vegetation. There is no tricuspid valve stenosis. PULMONIC VALVE The pulmonary valve is normal in structure and function. Doppler and Color Flow revealed no pulmonic valvular regurgitation. There is no pulmonic valvular stenosis. GREAT VESSELS The aortic root is normal in size. The ascending aorta is normal in size. The IVC is normal in size a nd collapses >50% with inspiration. PERICARDIAL EFFUSION There is no pleural effusion. There is no evidence of significant pericardial effusion. Critical Notification Critical Value: No <Conclusion> The left ventricular systolic function is normal and the ejection fraction is within normal range. EF 55% There is normal LV segmental wall motion. Signed by : Olvin Oden, Electronically Approved : 12/03/2021 09:04:36
--- NOTE | 2021-12-03 17:21 | RAD ---
MR#: [id number] Date of Study: 12/02/2021 Ordering Physician: ALENA YAP, Referring Physician: TONE KELLER Tech: Dominique Colorado RT (R) (N) APPROVED REPORT Test Type: Pharmacological Stress Nurse/Tech: Carlene Mathias RN Test Indications: SOB, Weakness Cardiac History: HTN, See EMR. Medications: See EMR. Medical History: Seizures, DM, See EMR. Resting ECG: SR Resting Heart Rate: 64 bpm Resting Blood Pressure: 117/69mmHg Pretest Chest Pain: No chest pain Nurse/Tech Notes Lungs CTA, Heart tones regular. Consent: The procedure was explained to the patient in lay terms. Informed consent was witnessed. Francisco eout was entered into [employer]. History and Stress Test performed by CHRYSTAL Saxena, OG (R) (N) Pharm. Details Pharmacologic stress testing was performed using 0.4mg per 5ml of regadenoson given intravenously ove r 7-10 seconds. Stress Symptoms Nausea POST EXERCISE Reason for Termination: Infusion complete Max HR: 101 bpm Max Blood Pressure: 113/64mmHg Blood Pressure response to exercise: Normal blood pressure response during stress. Heart Rate response to exercise: WNL Chest Pain: No. Arrhythmia: No. ST Change: No. INTERPRETATION Stress EKG Conclusion: No evidence of stress induced EKG changes. Imaging Protocol IMAGE PROTOCOL: Rest Tc-99m/stress Tc-99m 1 day Rest: Stress: Viability: Radiopharm.Tc99m PxseggyvcVp98l Sestamibi Dose9.5mCi 31mCi Duration 15min. 10min. Img Date 12/02/2021 12/02/2021 Inj-Img Kehe41llp. 60min. Rest Admin Site:IV - Right AntecubitalAdministrator:CHRYSTAL Saxena ARRT (R)(N) Stress Admin Site: IV - Right AntecubitalAdministrator: CHRYSTAL Saxena, OG (R)(N) STRESS DATA End Diast. Vol.75.0mlAv. Heart Rate66.0bpm End Syst. Vol.14.0mlCO Index BSA0.0L/min Myocardial Fbgw276.0gEject. Kitvsghw26.0% Stress Rates Pk. Fill Rate3.04EDV/secLVtime Pk. Fill 259.81msec Pk. Empty Rate4.79ESV/secLVtime Pk. Ldzvp180.20msec 1/ Pk. Fill0.67EDV/sec Stress Scores Regional WT0.00Summed WT3.00 Regional WM0.00Summed WM1.00 The rest and stress images show normal perfusion, normal contraction and thickening. LV Perf. Quant 17 Seg. SSS0.00 17 Seg. SRS0.00 17 Seg. SDS0.00 Stress Defect Extent (% LAD)0.00Rest Defect Extent (% LAD)0.00Rev. Defect Extent (% LAD)0.00 Stress Defect Extent (% LCX) 0.00Rest Defect Extent (% LCX)0.00Rev. Defect Extent (% LCX)0.00 Stress Defect Extent (% RCA)0.00Rest Defect Extent (% RCA)0.00Rev. Defect Extent (% RCA)0.00 Stress Defect Extent (% ROYER)0.00Rest Defect Extent (% ROYER)0.00Rev. Defect Extent (% ROYER)0.00 Other Information Quality:Average Risk Assessment: Low Risk Conclusion 1. No evidence of EKG changes with stress testing. 2. Normal perfusion at stress/rest. 3. Low risk study. 4. EF > 60%. Signed by : Olvin Oden, Electronically Approved : 12/03/2021 17:21:13
== END ==
LOC: NM 08:10
PROVIDERS: ATTEND Internal Medicine Cardiovascular Disease
DX: I51.7 Cardiomegaly (principal); R77.8 Other specified abnormalities of plasma proteins; R07.9 Chest pain, unspecified; R06.02 Shortness of breath; R53.1 Weakness
CPT/HCPCS: 78452; 93017; 93306; A9500; J2785; C8929